=== PATIENT | female | born 1950 | race Caucasian/White ===

== ENCOUNTER → 2017-04-10 | Outpatient (CLI) | payer OTHER | LOC: BRMIMAGING 08:19 | DX: Z12.31 Encounter for screening mammogram for malignant neoplasm of breast (principal); Z80.3 Family history of malignant neoplasm of breast | CPT/HCPCS: G0202 ==

== ENCOUNTER → 2018-05-07 | Outpatient (CLI) | payer MEDICARE, OTHER | LOC: BRMIMAGING 14:33 | PROVIDERS: ATTEND Family Medicine | DX: Z12.31 Encounter for screening mammogram for malignant neoplasm of breast (principal); Z80.3 Family history of malignant neoplasm of breast ==

== ENCOUNTER → 2018-08-16 | Outpatient (CLI) | payer OTHER | LOC: BRMIMAGING 11:30 | DX: S13.140A Subluxation of C3/C4 cervical vertebrae, initial encounter (principal); S13.180A Subluxation of C7/T1 cervical vertebrae, initial encounter; M50.30 Other cervical disc degeneration, unspecified cervical region; M89.38 Hypertrophy of bone, other site; M99.71 Connective tissue and disc stenosis of intervertebral foramina of cervical region | CPT/HCPCS: 72050-PO ==

== ENCOUNTER → 2018-08-19 | Outpatient (CLI) | payer OTHER | LOC: BRMIMAGING 11:22 | DX: M54.2 Cervicalgia (principal) | CPT/HCPCS: 72040-PO ==

== ENCOUNTER → 2019-05-09 | Outpatient (CLI) | payer OTHER | LOC: BRMIMAGING 09:53 ==

== ENCOUNTER → 2019-05-11 | Outpatient (CLI) | payer OTHER | LOC: BRMIMAGING 12:52 ==